=== PATIENT | male | born 1990 | race Two or more races ===

== ENCOUNTER 2016-05-13 09:02 | Emergency (ER) | payer SELFPAY ==
[~2016-05-13] VITALS: Ht 167.6 cm; Wt 65.8 kg
[2016-05-13 09:20] VITALS: BP 137/51
[2016-05-13] MEDS ORDERED: TETRACAINE HCL 0.5% OPTH(EYE) SOLN 2ML LEFTEYE ONE (11:00)
== END 2016-05-13 11:05 | disposition home or self-care (01) ==
LOC: ER 09:03
DX: H10.89 Other conjunctivitis (principal); B99.8 Other infectious disease